=== PATIENT | male | born 1980 | race Caucasian/White ===

== ENCOUNTER 2018-05-06 03:38 | Emergency (ER) | payer SELFPAY ==
[~2018-05-06] VITALS: Ht 172.7 cm; Wt 68.0 kg
== END 2018-05-06 05:27 | disposition left against medical advice (07) ==
LOC: ED 03:38
DX: F32.9 Major depressive disorder, single episode, unspecified (principal); F17.200 Nicotine dependence, unspecified, uncomplicated
CPT/HCPCS: 99283

== ENCOUNTER 2018-08-15 22:08 | Emergency (ER) | payer OTHER ==
[~2018-08-15] VITALS: Ht 172.7 cm; Wt 68.0 kg
--- OUTSIDE RECORDS SUMMARY | 2018-08-15 22:12 | XMS ---
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 CRITERIA MET - Group Notification CARE PROVIDERS There are no care providers on record at this time. Luz has no Care Guidelines for this patient. Nancy VISIT COUNT (12 MO.) 2 [facility] TOTAL 2 NOTE: Visits indicate total known visits. ED/C VISIT TRACKING (12 MO.) [facility] COMPLAINT: - BACK PAIN NON INJURY 05/06/2018 03:[address] [facility] [place] TYPE: Emergency COMPLAINT: - SUICIDAL IDEATION DIAGNOSES: - Major depressive disorder, single episode, unspecified - Nicotine dependence, unspecified, uncomplicated INPATIENT VISIT TRACKING (12 MO.) No inpatient visits to display in this time frame [email or web address]
[2018-08-15] MEDS ORDERED: CYCLOBENZAPRINE10 MG PO (23:55)
[2018-08-15] MEDS ORDERED: NAPROXEN500 MG PO (23:55)
== END 2018-08-16 00:05 | disposition home or self-care (01) ==
LOC: ED 22:08
DX: M54.5 Low back pain (principal); F17.200 Nicotine dependence, unspecified, uncomplicated
CPT/HCPCS: 81001; 99283

== ENCOUNTER 2019-12-17 12:44 | Emergency (ER) | payer OTHER ==
[~2019-12-17] VITALS: Ht 172.7 cm; Wt 74.8 kg
[~2019-12-17 12:44] MED LIST: CYCLOBENZAPRINE10 MG PO; NAPROXEN500 MG PO
--- OUTSIDE RECORDS SUMMARY | 2019-12-17 12:48 | XMS ---
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 Luz has no Care Guidelines for this patient. Care History Medical/Surgical 08/16/2018 [facility] CASE MANAGEMENT REFERRAL MADE- PATIENT HAS [facility] AND NO PCP. [facility] MO[facility] NOTE: Visits indicate total known visits. ED/UCC VISIT TRACKING (12 MO.) [facility]2019 12[facility] COMPLAINT: - LEG PAIN NO INJURY INPATIENT VISIT TRACKING (12 MO.) No inpatient visits to display in this time frame [email or web address]
[2019-12-17] MEDS ORDERED: INDOMETHACIN50 MG PO (14:53)
== END 2019-12-17 15:10 | disposition home or self-care (01) ==
LOC: ED 12:44
DX: M10.9 Gout, unspecified (principal); F17.200 Nicotine dependence, unspecified, uncomplicated
CPT/HCPCS: 99283

== ENCOUNTER 2023-12-28 00:30 | Emergency (ER) | payer OTHER ==
[~2023-12-28] VITALS: Ht 172.7 cm; Wt 82.0 kg
[~2023-12-28 00:30] MED LIST changes: +INDOMETHACIN50 MG PO
[2023-12-28] MEDS ORDERED: ondansetron HCL 4 MG/2 ML VIAL ONE (00:41)
[2023-12-28 00:44] LABS: EOSINOPHILS 3.7 % (0-6); LYMPHOCYTES 26.1 % (24-44)
[2023-12-28] MEDS ORDERED: ondansetron HCL 4 MG/2 ML VIAL IV ONE (00:45)
[2023-12-28 00:47] LABS: BASOPHILS 1.1 % (0-2); HEMATOCRIT 44.6 % (35.0-50.0); HEMOGLOBIN 15.1 g/dL (12.0-18.0); MCH 30.7 (27-36); MCHC 33.9 g/dl (30-36); MCV 90.7 fl (81-99); MONOCYTES 7.4 % (0-12); NEUTROPHILS 61.7 % (39-80); PLATELET COUNT 222 K/uL (140-440); RBC 4.91 M/ul (4.3-5.7); RDW 14.5 (10.5-15.0)
[2023-12-28 00:59] LABS: ALBUMIN 3.8 g/dL (3.4-5.0); ALBUMIN/GLOBULIN RATIO 1.23 (1.1-2.4); ALCOHOL, MEDICAL <3 ng/dL (<3); ALKALINE PHOSPHATASE 82 U/L (46-116); ALT (SGPT) 20 U/L (14-59); ANION GAP 12.7 (7-21); AST (SGOT) 13 U/L (15-37); BILIRUBIN, TOTAL 0.3 ng/dL (0.2-1.0); BUN/CREATININE RATIO 13.63 (6.0-28.6); CALCIUM 8.4 mg/dL (8.5-10.1); CARBON DIOXIDE 28 mmol/L (21-32); CHLORIDE 106 mmol/L (98-107); CREATININE, SERUM 0.88 mg/dL (0.70-1.30); GLOMERULAR FILTRATION RATE,EST 110 mL/min (>60); MAGNESIUM 1.8 mg/dL (1.8-2.4); POTASSIUM 3.7 mmol/L (3.5-5.1); PROTEIN, TOTAL 6.9 g/dL (6.4-8.2); UREA NITROGEN 12 mg/dL (7-18)
[2023-12-28] MEDS ORDERED: FAMOTIDINE 20 MG/ 2 ML VIAL IV ONE (01:15)
[2023-12-28] MEDS ORDERED: LACTATED RINGER'S 1,000 ML IV ONE (01:15)
[2023-12-28 01:18] LABS: BILIRUBIN, URINE NEGATIVE (negative); BLOOD/HGB, URINE NEGATIVE (Negative); KETONE, URINE TRACE (Negative); LEUK ESTERASE, URINE NEGATIVE (negative); NITRITE, URINE NEGATIVE (negative)
[2023-12-28 01:27] LABS: BACTERIA, URINE NONE SEEN /hpf (negative); CASTS, URINE NONE SEEN \\lpf; CRYSTALS, URINE NONE SEEN (0-1+); EPITHELIAL CELLS, URINE NONE SEEN /lpf (0-1+)
[2023-12-28 01:28] LABS: REFLEX CULTURE, URINE No (No)
[2023-12-28 01:29] LABS: COLLECTION TYPE, URINE CLEAN CATCH
[2023-12-28] MEDS ORDERED: ACETAMINOPHEN 500 MG TAB PO ONE (01:30)
[2023-12-28 01:31] LABS: AMPHETAMINES, URINE NEGATIVE (NEGATIVE); BARBITURATES, URINE NEGATIVE (NEGATIVE); BENZODIAZEPINE, URINE NEGATIVE (NEGATIVE); BUPRENORPHINE, URINE NEGATIVE (NEGATIVE); CANNABINOID, URINE NEGATIVE (NEGATIVE); COCAINE, URINE NEGATIVE (NEGATIVE); ECSTASY, URINE NEGATIVE (NEGATIVE); FENTANYL, URINE NEGATIVE (NEGATIVE); METHADONE, URINE NEGATIVE (NEGATIVE); OPIATES, URINE NEGATIVE (NEGATIVE); OXYCODONE, URINE NEGATIVE (NEGATIVE); PHENCYCLIDINE, URINE NEGATIVE (NEGATIVE)
[2023-12-28 02:40] VITALS: BP 123/90
== END 2023-12-28 02:43 | disposition home or self-care (01) ==
LOC: ED 00:30
PROVIDERS: Internal Medicine
DX: G43.909 Migraine, unspecified, not intractable, without status migrainosus (principal); R41.82 Altered mental status, unspecified; F17.200 Nicotine dependence, unspecified, uncomplicated
CPT/HCPCS: 36415; 70450; 71045; 80053; 80307; 81001; 83735; 85025; 96374; 96375; 99285-25; A9270; G0480; J2405; J7121